=== PATIENT | male | born 1965 | race Caucasian/White ===

== ENCOUNTER 2019-12-14 12:07 | Day surgery (SDC) | payer MEDICAID ==
[2019-12-12 12:35] VITALS: BMI 25.7
[~2019-12-14 12:07] MED LIST: LACTATED RINGERS 1,000 ML IV SCH
[2019-12-14] MEDS ORDERED: LIDOCAINE 1% (10MG/ML) FOR IV START INTRADERMA ONE (12:55)
[2019-12-14 13:08] VITALS: TEMP 97.4
[2019-12-14] MEDS ORDERED: PROPOFOL 10 MG/ML 20 ML VIAL IV ONE (13:27)
[2019-12-14] MEDS ORDERED: fentaNYL (PF) 50 MCG/ML 2 ML AMP ONE (13:27)
[2019-12-14] MEDS ORDERED: MIDAZOLAM 2 MG/2 ML VIAL ONE (13:27)
--- NOTE | 2019-12-14 13:45 | P.PCN ---
Date of Procedure: 12/14/19 Preoperative Diagnosis: blood in stool Postoperative Diagnosis: Diverticulosis Internal hemorrhoids Procedure(s) Performed: Colonoscopy Surgeon: Zev García Pathology: none sent Condition: stable Disposition: same day Indications for Procedure: 54-year-old male presents for a colonoscopy secondary to recent findings of bloo d in stool. Last colonoscopy was 5 years ago. Risks, benefits and alternatives were provided patient. He did provide consent prior to attending the endoscopy suite. Operative Findings: Diverticulosis Internal hemorrhoids Description of Procedure: The patient was brought to the endoscopy suite. He was then placed in left lateral decubitus position and adequate sedation was achieved using conscious sedation. A digital rectal exam was performed and mild internal hemorrhage or palpated. An endoscope was then placed in the rectum and advanced to the cecum was identified by landmarks including the appendiceal orifice and the ileocecal valve. The prep was fair. The colonoscope was then slowly withdrawn, examining for any mucosal abnormalities. The cecum, ascending, transverse, descending and sigmoid colon were visualized adequately. There was some stool remaining in the cecum, however the ron of the cecum were examined. There were no large neoplastic lesions noted throughout the colon. There were no obvious polyps noted throughout the colon. The patient did have scattered diverticulosis, specifically in the descending and sigmoid colon. Retroflexion was performed in the rectum and mild internal hemorrhoids were visualized. Excess air was removed, the colonoscope withdrawn and the procedure terminated. The patient wa s then transferred to the recovery unit in stable condition. Repeat colonoscopy should be performed in 10 years, unless otherwise symptomatic.
[2019-12-14 13:46] VITALS: RESP 16
[2019-12-14 14:00] VITALS: BP 133/95; PULSE 83
== END 2019-12-14 14:22 | disposition home or self-care (01) ==
LOC: ORWHC2ENDO 12:07
PROVIDERS: ATTEND Surgery
DX: K57.31 Diverticulosis of large intestine without perforation or abscess with bleeding (principal); K64.8 Other hemorrhoids; E05.00 Thyrotoxicosis with diffuse goiter without thyrotoxic crisis or storm; I11.9 Hypertensive heart disease without heart failure; K21.9 Gastro-esophageal reflux disease without esophagitis; Z98.890 Other specified postprocedural states; Z87.19 Personal history of other diseases of the digestive system; Z79.899 Other long term (current) drug therapy; Z79.890 Hormone replacement therapy; Z82.49 Family history of ischemic heart disease and other diseases of the circulatory system; Z80.3 Family history of malignant neoplasm of breast
CPT/HCPCS: 45378; J2250; J3010; J2704

== ENCOUNTER → 2021-01-13 | Outpatient (CLI) | payer MEDICAID ==
--- NOTE | 2021-01-13 13:36 | US ---
EXAMINATION TYPE: US kidneys/renal and bladder DATE OF EXAM: 01/13/2021 COMPARISON: NONE CLINICAL HISTORY: R31.0 GROSS HEMATURIA. EXAM MEASUREMENTS: Right Kidney: 12.1 x 4.7 x 5.6 cm Left Kidney: 12.6 x 7.2 x 6.0 cm Right Kidney: No hydronephrosis or masses seen Left Kidney: echogenic foci seen inferior, possible small stones, measures large Bladder: wnl Bilateral Jets seen: Yes There is no evidence for hydronephrosis at this point in time. No masses are identified. The urin nixon bladder is anechoic. Bilateral ureteral jets are seen. IMPRESSION: Nonobstructing nephrolithiasis.
== END | disposition home or self-care (01) ==
LOC: RADUSWWP 13:01
PROVIDERS: ATTEND Internal Medicine
DX: N20.0 Calculus of kidney (principal)
CPT/HCPCS: 76770

== ENCOUNTER → 2022-09-09 | Outpatient (CLI) | payer MEDICAID ==
--- NOTE | 2022-09-09 22:05 | MR ---
EXAMINATION TYPE: MR shoulder RT wo con DATE OF EXAM: 09/09/2022 COMPARISON: Outside right shoulder x-ray August 27, 2022 HISTORY: Right shoulder pain for 2 months due to fall. TECHNIQUE: Multiplanar, multisequence imaging of the right shoulder is performed without contrast. FINDINGS: Suboptimal with motion artifact degradation. Rotator Cuff: Mild increased signal in the supraspinatus and infraspinatus tendons. Focal full-thickn ess tear distal supraspinatus tendon coronal image 13 corresponding to sagittal image 26. Rotator cuf f muscle bulk preserved. Acromioclavicular Joint: Moderate narrowing with mild to moderate capsular hypertrophy. Some loss of the underlying fat plane on sagittal image 19. Distal acromion morphology unremarkable Glenohumeral Joint: Small to moderate-sized joint effusion. Tiny spur inferior medial aspect of the h umeral head. Labrum: The superior labrum is blunted with abnormal signal consistent with tear. Biceps Tendon: The long head of biceps is could not identified in normal location within bicipital gr oove. Dislocation and/or likely tear is felt present. Bone marrow signal: Tiny subchondral cystic change in the humeral head. Other: No additional significant abnormality is appreciated. IMPRESSION: 1. Significant full-thickness tear of the distal supraspinatus tendon. 2. Significant superior labral tear. Suspected dislocation and tear of the long head of biceps tendon .
== END | disposition home or self-care (01) ==
LOC: RADMRIMAIN 20:15
PROVIDERS: ATTEND Orthopaedic Surgery
DX: S46.011A Strain of muscle(s) and tendon(s) of the rotator cuff of right shoulder, initial encounter (principal); S43.431A Superior glenoid labrum lesion of right shoulder, initial encounter; M25.411 Effusion, right shoulder; W19.XXXA Unspecified fall, initial encounter

== ENCOUNTER → 2022-11-10 | Outpatient (CLI) | payer MEDICAID ==
[2022-11-10 15:24] LABS: Blood Urea Nitrogen 19.8 mg/dL (9.0-27.0); Calcium 9.7 mg/dL (8.7-10.3); Carbon Dioxide 26.8 mmol/L (21.6-31.8); Chloride 105 mmol/L (96-109); Glucose 87 mg/dL (70-110); Potassium 4.6 mmol/L (3.5-5.5); Sodium 142 mmol/L (135-145)
[2022-11-10 16:19] LABS: Basophils # (A) 0.04 X 10*3/uL (0.00-0.10); Basophils % (A) 0.8 %; Eosinophils # (A) 0.19 X 10*3/uL (0.04-0.35); Eosinophils % (A) 3.8 %; HCT 45.2 % (39.6-50.0); Lymphocytes # (A) 1.49 X 10*3/uL (0.90-5.00); MCH 30.3 pg (27.0-32.0); MCHC 33.2 d/dL (32.0-37.0); MCV 91.3 FL (80.0-97.0); Mean Platelet Volume 11.5 FL (9.5-12.2); Monocytes # (A) 0.47 X 10*3/uL (0.20-1.00); Monocytes % (A) 9.5 %; NRBC Per 100 WBC 0 X 10*3/uL (0.00-0.01); Neutrophils # (A) 2.74 X 10*3/uL (1.80-7.70); Neutrophils % (A) 55.1 %; Platelet Count 188 X 10*3/uL (140-440); RBC 4.95 X 10*6/uL (4.40-5.60); RDW 12.9 % (11.5-14.5); WBC 4.97 X 10*3/uL (4.50-10.00)
== END | disposition home or self-care (01) ==
LOC: LABPAT 07:17
PROVIDERS: ATTEND Orthopaedic Surgery
DX: Z01.818 Encounter for other preprocedural examination (principal); I44.30 Unspecified atrioventricular block; M75.41 Impingement syndrome of right shoulder; R94.31 Abnormal electrocardiogram [ECG] [EKG]
CPT/HCPCS: 36415; 80048; 85025; 93005

== ENCOUNTER 2022-11-24 10:38 | Day surgery (SDC) | payer MEDICAID ==
[2022-11-17 12:18] VITALS: BMI 25.7
--- NOTE | 2022-11-23 08:32 | P.HPOR ---
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 He notes he hurt himself reaching backwards. He felt a pull in his shoulder. He's had pain ever since. He has had pain with overhead use and at night. He notes that limited motion and strength. He's tried medications in addition has previously had previous injuries and treatment for the right shoulder. Review of Systems As per HPI Past Medical History Past Medical History: GERD/Reflux, Hyperlipidemia, Hypertension, Osteoarthritis (OA), Thyroid Disorder History of Any Multi-Drug Resistant Organisms: None Reported Past Surgical History: Orthopedic Surgery Additional Past Surgical History / Comment(s): Bilat knee arthroscopy. Past Anesthesia/Blood Transfusion Reactions: No Reported Reaction Past Psychological History: No Psychological Hx Reported Smoking Status: Never smoker Past Alcohol Use History: Occasional Past Drug Use History: None Reported - Past Family History Mother Family Medical History: Cancer Additional Family Medical History / Comment(s): Breast cancer. Medications and Allergies Home Medications Medication Instructions Recorded Confirmed Type Lisinopril-Hctz 10-12.5 mg 1 each PO QAM 08/22/14 11/17/22 History [Zestoretic 10-12.5] Omeprazole [PriLOSEC] 20 mg PO QAM 08/22/14 11/17/22 History Levothyroxine Sodium [Synthroid] 250 mcg PO QAM 12/12/19 11/17/22 History Rosuvastatin Calcium 5 mg PO HS 11/17/22 11/17/22 History Allergies Allergy/AdvReac Type Severity Reaction Status Date / Time No Known Allergies Allergy Verified 11/17/22 12:24 Physical Examination - Shoulder right Tenderness with palpation: anterior, bicipital groove Pain: with forward flexion ROM: forward flexion: 140 degrees ROM: internal rotation: lower lumbar ROM: external rotation: 60 degrees Crepitus with motion: Yes Strength: abduction: 5/5 Strength: external rotation: 5/5 Tests: internal impingement tests: positive, external impingment tests: positive Results The patient is a well-developed well-nourished male approximately 6 foot 2, 195 pounds of mesomorphic habitus. HEENT exam is nonfocal, neck is supple. On the right shoulder he is tender about anterior subacromial space. His moderate subacromial crepitus. Impingement test, Neer test, and speed tests are positive. His distal neurovascular appears intact in the right upper extremity. - Diagnostic results Shoulder MRI: image reviewed (Right shoulder MRI shows evidence of a proximal biceps rupture along with superior labral tear and full-thickness rotator cuff tear.) Assessment and Plan Assessment: Right shoulder impingement/rotator cuff tearsymptomatic Right proximal biceps rupture/superior labral tear Plan: I talked to the patient regarding his condition along treatment options. At this point is quite symptomatic after this most recent injury despite previous conservative measures. After thorough discussion of his options, he opted to proceed with surgery. We'll plan to proceed with right shoulder arthroscopy with probable subacromial decompression, rotator cuff repair, in addition to possible biceps debridement. We will likely perform that as an outpatient procedure. Risks and benefits were discussed at length in layman's terms.
[~2022-11-24 10:38] MED LIST changes: +DEXAMETHASONE SOD PHOSPHATE 4 MG/ML 1 ML VIAL IV ONE; +MIDAZOLAM 2 MG/2 ML VIAL IV PRN; +ONDANSETRON 4 MG/2 ML VIAL IVP ONE; +SCOPOLAMINE 1 MG/72 HR PATCH TRANSDERM ONE
[2022-11-24 11:04] VITALS: TEMP 97
[2022-11-24] MEDS ORDERED: fentaNYL (PF) 50 MCG/ML 2 ML AMP IVP ONE (12:03)
--- NOTE | 2022-11-24 12:14 | P.ANPRN ---
Procedure Note - Anesthesia - Nerve Block Performed Right Interscalene Single Time Out Performed: Yes Date of Procedure: 11/24/22 Procedure Start Time: 12:10 Procedure Stop Time: 12:14 Location of Patient: PreOp Indication: Acute Post-Operative Pain, Requested by Surgeon Sedation Type: Sedate with meaningful contact maintained Preparation: Sterile Prep Position: Supine Needle Types: Pajunk Needle Gauge: 21 Ultrasound used to visualize needle placement: Yes Ultrasound used to observe medication spread: Yes Injectate: 0.5% Ropivacaine (see comment for volume) (15 ml) Blood Aspirated: No Pain Paresthesia on Injection Noted: No Resistance on Injection: Normal Image Stored and Saved: Yes Events: Uneventful and Well Tolerated
[2022-11-24] MEDS ORDERED: SUCCINYLCHOLINE CHLORIDE 200 MG/10 ML VIAL IV ONE (13:17)
[2022-11-24] MEDS ORDERED: PROPOFOL 10 MG/ML 20 ML VIAL IV ONE (13:17)
[2022-11-24] MEDS ORDERED: NEOSTIGMINE 1 MG/ML 10 ML VIAL ONE (13:17)
[2022-11-24] MEDS ORDERED: PHENYLEPHRINE 10 MG/ML VIAL ONE (13:17)
[2022-11-24] MEDS ORDERED: DEXAMETHASONE SOD PHOSPHATE 10 MG/ML 1 ML VIAL ONE (13:17)
[2022-11-24] MEDS ORDERED: LIDOCAINE 2% INJ 20 MG/ML (2 ML VIAL) ONE (13:17)
[2022-11-24] MEDS ORDERED: GLYCOPYRROLATE 0.2 MG/ML 2 ML VIAL ONE (13:17)
[2022-11-24] MEDS ORDERED: ROCURONIUM 10 MG/ML (5 ML VIAL) IV ONE (13:17)
[2022-11-24] MEDS ORDERED: ROPIVACAINE 5 MG/ML 30 ML VIAL ONE (13:17)
[2022-11-24] MEDS ORDERED: EPINEPHRINE IRRIGATION ONE (13:58)
[2022-11-24] MEDS ORDERED: SODIUM CHLORIDE IRRIGATION ONE (13:58)
[2022-11-24] MEDS ORDERED: LACTATED RINGERS 1,000 ML IV ONE (14:01)
--- NOTE | 2022-11-24 14:53 | P.OP ---
Date of Procedure: 11/24/22 Preoperative Diagnosis: Right shoulder impingement/symptomatic rotator cuff tear/proximal biceps rupture Postoperative Diagnosis: 3 cm rotator cuff tear Procedure(s) Performed: Right shoulder arthroscopic subacromial decompression/biceps debridement/superi or labral debridement/rotator cuff repair Implants: Arthrex 4.75 mm swivel lock anchor 3, 5.5 mm swivel lock anchor 1 [facility] Surgeon: Luiz Schumacher Warp Tying Machine Knotter #1: Sherwin Rodrigues Estimated Blood Loss (ml): 10 Pathology: none sent Condition: stable Disposition: PACU Indications for Procedure: The patient's a 57-year-old male presents with a recent injury with progressive right shoulder pain and weakness despite previous conservative measures. A discussion of the risks and benefits of operative intervention versus continued conservative measures was made with patient. He opted to proceed with surgery. Operative risks to include infection, neurovascular injury, development of blood clots, possible tendon rerupture, possible postoperative stiffness and need for subsequent procedures was discussed. Informed consent was obtained. Operative Findings: As below Description of Procedure: The patient was brought to the operating room, and after induction of general anesthesia was placed in a beachchair position. A preoperative interscalene block was placed for postoperative analgesia. I examined the right shoulder. There was no gross block to passive motion or gross glenohumeral instability. The right upper extremity was prepped and draped in normal fashion. The bony outlines the acromion, distal clavicle, and coracoid process were outlined with a skin marker. The glenohumeral joint was inflated with 50 mL of saline utilizing a spinal needle from posterior approach. A posterior portal was made through a 5 mm skin incision 1 cm medial and inferior to the posterior lateral border time. A blunt trocar was used to easily into the joint. Diagnostic arthroscopy was performed. An anterior portal was made just lateral to the coracoid process entering the joint above the subscapularis tendon. The subscapularis tendon appeared to be intact. Anterior labrum was intact. The inferior recess was inspected. The posterior labrum was intact. The long head of the biceps was previously ruptured with a remnant remaining. This was debrided along with the superior labrum back to a stable base. On inspection the rotator cuff, a full-thickness tear involving the supraspinatus and a portion the infraspinatus was noted with minimal retraction. The arthroscope was placed into the subacromial space. A lateral portal was made 2 centimeters inferior to the anterior lateral border of the acromion. The rotator cuff was then mobilized with a traction suture. This was then easily brought back to the greater tuberosity. The soft tissue on the undersurface of the acromion was debrided with a motorized shaver and electrocautery clearly defining the anterior medial and lateral borders as well as the distal clavicle. An anterior inferior acromioplasty was performed with a motorized taylor starting anterolateral, then extending this posteriorly, then extending this medially. I converted to a flat acromion and this was verified in the posterior and lateral viewing portals. The greater tuberosity was lightly decorticating with a shaver down to a bleeding bony surface. An accessory posterior lateral portal was made off the lateral edge of the acromion for viewing. An accessory superior lateral portal was made just off the lateral edge of the acromion for anchor placement. 2 anchors were then placed just off the articular surface with the appropriate starting awl. 4.75 mm anchors preloaded with #2 fiber tape were placed. Good purchase was obtained. These fiber tapes were then passed the rotator cuff with a scorpion suture passer. A lateral row was created crisscrossing these tapes. A 4.75 mm swivel lock anchor was placed anteriorly and a 5.5 mm swivel lock anchor placed posteriorly with good purchase. The previously placed traction suture was incorporated in the anterior anchor. Final arthroscopic view showed adequate compression at the footprint. The arthroscope was then removed. The portals were closed with simple 3-0 nylon sutures. A sterile dressing was applied in addition to an abductor brace. The patient was then awoken from general anesthesia and transferred to recovery room in good condition. Blood loss was estimated at 10 mL. No complications were incurred. Sponge and needle counts were correct in the case. Sherwin MCFARLANE assisted and the major components of the case to include arm positioning, anchor placement, and rotator cuff repair.
[2022-11-24] MEDS: HYDROmorphone 0.5 MG/0.5 ML SYRINGE IVP PRN ×2 (15:21→15:33)
[2022-11-24] MEDS ORDERED: HYDROcodone/APAP 7.5-325MG 1 EACH TAB PO ONE (16:15)
[2022-11-24] MEDS ORDERED: HYDROcodone/APAP 7.5-325MG 1 EACH TAB ONE (16:16)
[2022-11-24 16:30] VITALS: BP 136/97; PULSE 68; RESP 20
== END 2022-11-24 16:51 | disposition home or self-care (01) ==
LOC: OR 10:38
PROVIDERS: ATTEND Orthopaedic Surgery
DX: M75.41 Impingement syndrome of right shoulder (principal); M75.121 Complete rotator cuff tear or rupture of right shoulder, not specified as traumatic; S46.211A Strain of muscle, fascia and tendon of other parts of biceps, right arm, initial encounter; I10 Essential (primary) hypertension; E78.5 Hyperlipidemia, unspecified; K21.9 Gastro-esophageal reflux disease without esophagitis; Z98.890 Other specified postprocedural states; Z86.59 Personal history of other mental and behavioral disorders; Z80.3 Family history of malignant neoplasm of breast; Z79.890 Hormone replacement therapy; Z79.899 Other long term (current) drug therapy
CPT/HCPCS: 64415; 29826; 29827; C1713 ×2; C1894; J2250; J0330; J1100 ×2; J2710; J0690; J2405; J0171; J3010; J2795; J2704; J1170; J2001; J2371

== ENCOUNTER → 2023-07-20 | Outpatient (CLI) | payer MEDICAID ==
--- NOTE | 2023-07-20 16:20 | XR ---
EXAMINATION TYPE: XR cervical spine comp DATE OF EXAM: 07/20/2023 COMPARISON: None HISTORY: Cervicalgia TECHNIQUE: 5 view cervical spine FINDINGS: Tip of the odontoid is limited due to overlying maxilla. Prevertebral space is normal. Post erior spinal lamellar line is intact. There is loss of disc height present C5-6 C6-7. Vertebral body heights are preserved. Neural foramen appear patent. Note is made of some vascular calcification in t he expected region of the right carotid bifurcation. IMPRESSION: 1. No acute osseous abnormality cervical spine. 2. Mild degenerative disc changes lower cervical spine. 3. Right carotid vascular calcification
== END | disposition home or self-care (01) ==
LOC: RADXRYALE 15:58
PROVIDERS: ATTEND Internal Medicine
DX: M50.30 Other cervical disc degeneration, unspecified cervical region (principal); I65.21 Occlusion and stenosis of right carotid artery
CPT/HCPCS: 72050

== ENCOUNTER → 2023-08-04 | Outpatient (CLI) | payer MEDICAID ==
--- NOTE | 2023-08-05 12:25 | US ---
EXAMINATION TYPE: US carotid duplex BILAT DATE OF EXAM: 08/04/2023 COMPARISON: NONE CLINICAL INDICATION: Male, 57 years old with history of I65.23 OCCLUSION AND STENOSIS OF BILATERAL CA ROTID; HTN- controlled with medication. No hx TIA/stroke. TECHNIQUE: Carotid duplex ultrasound examination. Indirect Doppler criteria was utilized. FINDINGS: EXAM MEASUREMENTS: RIGHT: Peak Systolic Velocity (PSV) cm/sec ----- Right CCA: 71.2 ----- Right ICA: 63.6 ----- Right ECA: 72.9 ICA/CCA ratio: 0.9 RIGHT: End Diastole cm/sec ----- Right CCA: 24.1 ----- Right ICA: 26.1 ----- Right ECA: 18.0 LEFT: Peak Systolic Velocity (PSV) cm/sec ----- Left CCA: 75.6 ----- Left ICA: 73.5 ----- Left ECA: 77.6 ICA/CCA ratio: 1.0 LEFT: End Diastole cm/sec ----- Left CCA: 23.2 ----- Left ICA: 21.9 ----- Left ECA: 23.7 VERTEBRALS (direction of flow): Right Vertebral: Antegrade Left Vertebral: Antegrade Rhythm: Normal [employer] DEVELOPER NOTES: Mild plaque visualized in bilateral bulbs. No wall thickening, elevated velocitie s or significant stenosis visualized. IMPRESSION: Mild plaque with no significant hemodynamic stenosis bilaterally. Criteria for Assigning % of Stenosis / Diameter reduction (Estimation based on the indirect measurements of the internal carotid artery velocities (ICA PSV). 1. Normal (no stenosis)=ICA PSV < 125 cm/s: ratio < 2.0: ICA EDV<40 cm/s. 2. Less than 50% stenosis=ICA PSV < 125 cm/s: ratio < 2.0: ICA EDV<40 cm/s. 3. 50 to 69% stenosis=ICA PSV of 125 to 230 cm/s: ration 2.0 ? 4.0: ICA EDV 40-100 cm/s. 4. Greater than 70% stenosis to near occlusion= ICA PSV > 230 cm/s: ratio > 4.0: ICA EDV > 100 cm/s. 5. Near occlusion= ICA PSV velocities may be low or undetectable: variable ratio and ICA EDV. 6. Total occlusion=unable to detect flow.
== END | disposition home or self-care (01) ==
LOC: RADUSWWP 15:03
PROVIDERS: ATTEND Internal Medicine
DX: I65.23 Occlusion and stenosis of bilateral carotid arteries (principal); I10 Essential (primary) hypertension
CPT/HCPCS: 93880

== ENCOUNTER → 2024-03-21 | Outpatient (CLI) | payer MEDICAID ==
--- NOTE | 2024-03-21 09:50 | MR ---
EXAMINATION TYPE: MR Prostate wo/w con DATE OF EXAM: 03/21/2024 8:54 AM COMPARISON: None. CLINICAL INDICATION: Male, 58 years old with history of R97.20 Elevated PSA; TECHNIQUE: Multi-planar, multi-sequence imaging of the pelvis is performed prior to and following the uncomplicated administration of bolus intravenous gadolinium. IV Contrast: 8 mL Gadavist Interpretive Criteria: PI-RADS v2.1 SERUM PSA: PSA 4.70 02/16 PSA 3.20 09/16 SURGICAL PATHOLOGY: No data available. FINDINGS: Prostatic dimensions: 4.8 x 4.6 x 3.4 cm. "Bullet" Volume: 49.13 (PSA density=0.10 ng/mL/mL) CENTRAL GLAND (Central and Transition Zones/CZ+TZ): Multiple bilateral, heterogenous appearing hypertrophic stromal nodules, within the left mid gland is a low T2 high DWI low ADC signal area with postcontrast enhancement measuring 24 x 18 mm the posteri or margin of this region appears well defined suggesting this may possibly related to BPH nodule. Pre cautionary biopsy recommended (PI-RADS 5 by size criteria if this is a lesion) PERIPHERAL ZONE (PZ): Bilateral linear, indistinct wedgelike areas of low ADC, and low T2 signal, No evidence of masslike a bnormality, or localized perfusional hypervascularity, to further suggest a focus of clinically signi ficant prostate cancer. (PI-RADS 2) SEMINAL VESICLES (SV): Symmetric and unremarkable. PERIPROSTATIC TISSUES: Unremarkable. LYMPH NODES: No enlarged pelvic lymph node. REMAINING PELVIS: Bladder wall is within normal limits given distention. No abnormal free or organized intrapelvic fluid collection. No pathologic bowel dilation or mural thickening. Right fat containing inguinal hernia OSSEOUS STRUCTURES: No suspicious osseous abnormality. IMPRESSION: 1. PI-RADS 5 lesion versus masslike BPH nodule in the left central zone mid gland. Tissue sampling re commended 2. Mild BPH, estimated gland volume 49.13 mL. 3. No suspicious osseous lesion. No lymphadenopathy. No evidence of prostate adenocarcinoma involving the periprostatic tissues. [facility], , 03/21/2024 9:48 AM
== END | disposition home or self-care (01) ==
LOC: RADMRIMAIN 07:32
PROVIDERS: ATTEND Urology
DX: N40.0 Benign prostatic hyperplasia without lower urinary tract symptoms (principal); R97.20 Elevated prostate specific antigen [PSA]
CPT/HCPCS: 72197; A9585

== ENCOUNTER → 2024-04-04 | Outpatient (CLI) | payer MEDICAID ==
[2024-04-04 10:22] LABS: Basophils # (A) 0.03 X 10*3/uL (0.00-0.10); Basophils % (A) 0.6 %; Eosinophils # (A) 0.32 X 10*3/uL (0.04-0.35); Eosinophils % (A) 6.8 %; HCT 42.9 % (39.6-50.0); HGB 14.1 g/dL (13.0-17.0); Lymphocytes # (A) 1.46 X 10*3/uL (0.90-5.00); Lymphocytes % (A) 31.2 %; MCH 29.9 pg (27.0-32.0); MCHC 32.9 g/dL (32.0-37.0); MCV 91.1 FL (80.0-97.0); Mean Platelet Volume 11.5 FL (9.5-12.2); Monocytes # (A) 0.45 X 10*3/uL (0.20-1.00); Monocytes % (A) 9.6 %; NRBC Per 100 WBC 0 X 10*3/uL (0.00-0.01); Neutrophils # (A) 2.39 X 10*3/uL (1.80-7.70); Neutrophils % (A) 51.2 %; Platelet Count 162 X 10*3/uL (140-440); RBC 4.71 X 10*6/uL (4.40-5.60); RDW 12.6 % (11.5-14.5); WBC 4.68 X 10*3/uL (4.50-10.00)
[2024-04-04 10:48] LABS: Appearance,Urine Clear (Clear); Bilirubin,Urine Negative (Negative); Blood,Urine Negative (Negative); Color,Urine Yellow (Yellow); Ketones,Urine Negative (Negative); Nitrite,Urine Negative (Negative); Specific Gravity,Urine 1.014 (1.001-1.030); Urobilinogen,Urine 0.2 E.U./DL
[2024-04-04 10:49] LABS: BUN/Creat Ratio 20.44 Ratio (12.00-20.00); Blood Urea Nitrogen 18.4 mg/dL (9.0-27.0); Calcium 9.4 mg/dL (8.7-10.3); Carbon Dioxide 25.9 mmol/L (21.6-31.8); Chloride 105 mmol/L (96-109); Glucose 94 mg/dL (70-110); Potassium 4.4 mmol/L (3.5-5.5); Sodium 141 mmol/L (135-145)
== END | disposition home or self-care (01) ==
LOC: LABWHC1 07:25
PROVIDERS: ATTEND Urology
DX: Z01.812 Encounter for preprocedural laboratory examination (principal); R97.20 Elevated prostate specific antigen [PSA]
CPT/HCPCS: 80048; 81003; 85025; 87086

== ENCOUNTER 2024-04-11 11:45 | Day surgery (SDC) | payer MEDICAID ==
--- NOTE | 2024-04-04 16:58 | P.HPIHPCON ---
History of Present Illness H&P Date: 04/04/24 Chief Complaint: elevated PSA This is a 70-year-old male with history of elevated PSA of 4.7. Underwent a prostate MRI that showed evidence of a PI-RADS 5 lesion along the left central gland. discussed with him given this finding I do recommend proceeding with MRI fusion prostate biopsy. Aware of the risk which includes but not limited to bleeding, infection Consent for Procedure: I have explained the operation/procedure to the patient, including the risks, benefits, side effects, alternative therapies (including not receiving the proposed treatment or service), the likelihood of the patient achieving his/her goals, and potential recuperation problems for the procedure/sedation/analgesia, as well as any blood products, if indicated. I also explained to the patient the risks, benefits and side effects of the alternatives, as well as the risks related to not receiving the proposed procedure, care, treatment, or services. Past Medical History Past Medical History: Hypertension, Thyroid Disorder History of Any Multi-Drug Resistant Organisms: None Reported Past Surgical History: No Surgical Hx Reported Past Psychological History: No Psychological Hx Reported Past Alcohol Use History: Occasional Past Drug Use History: None Reported Medications and Allergies Home Medications Medication Instructions Recorded Confirmed Type Lisinopril-Hctz 10-12.5 mg 1 each PO QAM 08/22/14 11/24/22 History [Zestoretic 10-12.5] Omeprazole [PriLOSEC] 20 mg PO QAM 08/22/14 11/24/22 History Levothyroxine Sodium [Synthroid] 250 mcg PO QAM 12/12/19 11/24/22 History Rosuvastatin Calcium 5 mg PO HS 11/17/22 11/24/22 History HYDROcodone/APAP 7.5-325MG [[place] 1 each PO Q6HR PRN #28 tab 11/24/22 Rx 7.5] Allergies Allergy/AdvReac Type Severity Reaction Status Date / Time No Known Allergies Allergy Verified 11/24/22 10:52 Surgical - Exam - General no distress, no pain - ENT normal nares, normal mucosa - Respiratory normal expansion, normal respiratory effort - Abdomen Abdomen: soft, non tender Assessment and Plan Assessment: OR for MRI fusion biopsy of the prostate
[2024-04-10 08:48] VITALS: BMI 27.1
[~2024-04-11 11:45] MED LIST changes: -DEXAMETHASONE SOD PHOSPHATE 4 MG/ML 1 ML VIAL IV ONE; +GENTAMICIN 120 MG in SODIUM CHLORIDE 0.9% 100 ML IVPB PRN; -LACTATED RINGERS 1,000 ML IV SCH; -MIDAZOLAM 2 MG/2 ML VIAL IV PRN; -ONDANSETRON 4 MG/2 ML VIAL IVP ONE; -SCOPOLAMINE 1 MG/72 HR PATCH TRANSDERM ONE
[2024-04-11] MEDS ORDERED: LIDOCAINE 1% (10MG/ML) FOR IV START INTRADERMA PRN (12:40)
[2024-04-11] MEDS ORDERED: MIDAZOLAM 2 MG/2 ML VIAL IV PRN (12:40)
[2024-04-11] MEDS ORDERED: HYDROmorphone 0.5 MG/0.5 ML SYRINGE IVP PRN (12:40)
[2024-04-11] MEDS ORDERED: fentaNYL (PF) 50 MCG/ML 2 ML AMP IVP PRN (12:40)
[2024-04-11 12:47] VITALS: RESP 16; TEMP 97.1
[2024-04-11] MEDS: IV FLUID CONTINUATION 1,000 ML IV ONE (12:55)
[2024-04-11] MEDS: ONDANSETRON 4 MG/2 ML VIAL IVP ONE (13:09)
[2024-04-11] MEDS: DEXAMETHASONE SOD PHOSPHATE 4 MG/ML 1 ML VIAL IV ONE (13:09)
[2024-04-11] MEDS: GENTAMICIN 40 MG/ML 2 ML VIAL IM STA (13:48)
[2024-04-11] MEDS: LACTATED RINGERS 1,000 ML IV SCH (13:51)
[2024-04-11] MEDS ORDERED: PROPOFOL 10 MG/ML 20 ML VIAL IV ONE (14:19)
[2024-04-11] MEDS ORDERED: MIDAZOLAM 2 MG/2 ML VIAL ONE (14:19)
--- NOTE | 2024-04-11 15:43 | P.OP ---
Date of Procedure: 04/11/24 Preoperative Diagnosis: Elevated PSA Postoperative Diagnosis: Same Procedure(s) Performed: MRI fusion biopsy of the prostate Anesthesia: MAC Surgeon: Augustin Olivera Estimated Blood Loss (ml): 1 Pathology: other (prostate biopsies) Condition: stable Disposition: PACU Indications for Procedure: This is a 70-year-old male with history of elevated PSA of 4.7. Underwent a prostate MRI that showed evidence of a PI-RADS 5 lesion along the left central gland. discussed with him given this finding I do recommend proceeding with MRI fusion prostate biopsy. Aware of the risk which includes but not limited to bleeding, infection Description of Procedure: The patient was taken to the operating room and placed in the left lateral decubitus position. The [place] [employer] transrectal ultrasound probe was placed intrarectally. It was then placed within the stand of the [employer] MRI/TRUS Fusion for Prostate Biopsy system. The prostate was imaged in both the axial and sagittal planes. Using the Biopsy gun, 3 biopsies were obtained from the target lesion, there were was one lesions, . The remaining 12 biopsies of the peripheral zone were obtained utilizing a standard template. Once the procedure was completed, the ultrasound probe was removed. The patient tolerated the procedure well was taken to the recovery room stable condition
[2024-04-11 16:02] VITALS: BP 118/85; PULSE 88
== END 2024-04-11 16:25 | disposition home or self-care (01) ==
LOC: OR 11:45
PROVIDERS: ATTEND Urology
DX: C61 Malignant neoplasm of prostate (principal); I10 Essential (primary) hypertension; E07.9 Disorder of thyroid, unspecified; F10.90 Alcohol use, unspecified, uncomplicated; Z79.890 Hormone replacement therapy; Z79.899 Other long term (current) drug therapy
CPT/HCPCS: 55700; 88344; 88305; J2250; J1580; J1100; J2405; J2704

== ENCOUNTER → 2024-05-05 | Outpatient (CLI) | payer MEDICAID ==
--- NOTE | 2024-05-07 18:35 | PE ---
EXAMINATION TYPE: PET CT fusion skull to thigh DATE OF EXAM: 05/05/2024 CLINICAL INDICATION:Male, 58 years old with history of C61 PROSTATE CANCER; TECHNIQUE: Following the intravenous administration of 6.6 mCi of Ga-68 Illuccix (PSMA), whole body images are performed from the skull base to the midthigh. Images are reviewed on the computer in th e coronal, axial, and sagittal planes. Reconstructed rotating images are created on independent work station and reviewed on the computer. A non-contrast CT is performed in conjunction with the PET sc an. CT DLP: 898 mGycm, Automated exposure control for dose reduction was used. COMPARISON: CT None, PET/CT None, MRI: 03/21/2024 FINDINGS: Mediastinal SUV mean is 1.2. Hepatic parenchyma SUV mean is 5.4. SKULL BASE AND NECK: No suspicious radiotracer activity. CHEST, MEDIASTINUM, AND HILAR REGION: No suspicious radiotracer activity. ABDOMEN AND PELVIS: Intense uptake within the posterior prostate gland slightly left of midline max SUV 13.5. Which is pr esent on nonattenuation corrected images given the dense calcifications are in this region. MUSCULOSKELETAL STRUCTURES: No suspicious radiotracer activity. OTHER CT: Cholelithiasis. Colonic diverticulosis. Circumferential bladder wall thickening. IMPRESSION: Intense uptake within the posterior left parotid gland suspicious for primary prostatic adenocarcinom a. This is not correlate with finding on 03/21/2024 MRI left central gland finding. More posterior jil ng and gland peripheral zone. No evidence for metastatic disease at this time. If not already perform ed tissue sampling recommended. [facility], , 05/07/2024 6:33 PM
== END | disposition home or self-care (01) ==
LOC: RADPETMAIN 07:30
PROVIDERS: ATTEND Urology
DX: C61 Malignant neoplasm of prostate (principal)
CPT/HCPCS: 78815; A9596

== ENCOUNTER → 2024-08-03 | Outpatient (CLI) | payer MEDICAID | END | disposition home or self-care (01) | LOC: LABWHC1 09:38 | PROVIDERS: ATTEND Urology | DX: C61 Malignant neoplasm of prostate (principal) | CPT/HCPCS: 36415; 84153 ==